=== PATIENT | male | born 1970 | race Caucasian/White ===

== ENCOUNTER 2019-02-12 09:52 | Emergency (ER) | payer SELFPAY ==
[~2019-02-12] VITALS: Ht 172.7 cm; Wt 83.9 kg
[2019-02-12 10:06] VITALS: BP 148/92
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
[2019-02-12] MEDS ORDERED: oxyCODONE/APAP 5/325 1 TAB TABLET PO ONE (10:15)
[2019-02-12] MEDS ORDERED: DIPHTH,PERTUSS(ACELL),TET TOX 0.5 ML DISP.SYRIN. VAX IM ONE (10:30)
--- NOTE | 2019-02-12 10:39 | RAD ---
Single view chest and left-sided rib study dated 02/12/2019. No comparison available. CLINICAL INDICATION: Pain after injury. FINDINGS: Single AP view chest shows normal heart and mediastinal contours. Lungs are hypoinflated but otherwise clear. No consolidation or pleural effusion. No pneumothorax. There are some prominent perihilar linear markings, nonspecific. Dedicated views of the left-sided ribs show nondisplaced fractures of the eighth and ninth posterior lateral left ribs, minimally displaced. There is also possible nondisplaced fracture of the 10th posterior lateral left rib. IMPRESSION: 1. Fractures of the eighth through 10th posterior lateral left ribs. 2. Grossly clear lungs with no apparent pneumothorax Electronically signed by: Ethan Salinas MD (02/12/2019 10:37 AM) [id number]
[2019-02-12] MEDS ORDERED: Lidoderm 5% Patch TOP (10:55)
[2019-02-12] MEDS ORDERED: OXYC-325 PO (10:55)
== END 2019-02-12 11:03 | disposition home or self-care (01) ==
LOC: ER 09:52
DX: S22.42XA Multiple fractures of ribs, left side, initial encounter for closed fracture (principal); S01.01XA Laceration without foreign body of scalp, initial encounter; E11.9 Type 2 diabetes mellitus without complications; G89.29 Other chronic pain; Y08.89XA Assault by other specified means, initial encounter; Y93.89 Activity, other specified; Y92.143 Cell of prison as the place of occurrence of the external cause; Y99.8 Other external cause status
CPT/HCPCS: 12001; 71101; 82947; 90471; 90715; 99285; G0238